=== PATIENT | male | born 1995 | race Two or more races ===

== ENCOUNTER 2023-05-05 20:30 | Emergency (ER) | payer SELFPAY ==
[~2023-05-05] VITALS: Ht 180.3 cm; Wt 83.0 kg
[2023-05-05] MEDS ORDERED: METOCLOPRAMIDE HCL 5MG/ml INJ 2ml VIAL IV ONE (21:00)
[2023-05-05] MEDS ORDERED: SODIUM CHLORIDE 0.9% 1,000 ML IV ONE (21:00)
[2023-05-05 21:54] LABS: Basophils # (auto) 0.1 10 ^3/uL (0-0.2); Basophils % (auto) 0.8 % (0.0-2.0); Eosinophils # (auto) 0.3 10 ^3/uL (0-0.8); Lymphocytes # (auto) 2.4 10 ^3/uL (0.4-5.4); Mean Corpuscular Hemoglobin 30.6 pg (28.0-32.0); Mean Corpuscular Volume 89.8 fL (80.0-100.0); Monocytes # (auto) 0.6 10 ^3/uL (0-1.3); Monocytes % (auto) 6.1 % (0.0-12.0); Neutrophils # (auto) 6.2 10 ^3/uL (1.6-8.6); Neutrophils % (auto) 65.1 % (37.0-80.0); Red Blood Cells 4.57 10^6/uL (4.5-5.90); Red Cell Distribution Width 13.4 % (11.8-14.3); White Blood Cell 9.6 10^3/uL (4.4-10.8)
[2023-05-05 22:13] LABS: Albumin 3.7 g/dL (3.4-5.0); BUN/Creatinine Ratio 11.5 (10.0-20.0); Calcium 9.4 mg/dL (8.5-10.1); Potassium 4.6 mmol/L (3.5-5.1)
[2023-05-05 22:22] LABS: Bilirubin, Total 0.3 mg/dL (0.2-1.0); Total Protein 7.5 g/dL (6.4-8.2)
[2023-05-05 23:48] LABS: Alcohol, Urine < 3.0 mg/dL (0-10); Amphetamine Screen, Urine POSITIVE (NEGATIVE); Barbiturate Scree,Urine NEGATIVE (NEGATIVE); Benzodiazephine Screen, Urine NEGATIVE (NEGATIVE); Cannabinoid Screen, Urine POSITIVE (NEGATIVE); Cocaine Screen, Urine NEGATIVE (NEGATIVE); Urine Amorphous Crystal MOD /hpf (None Seen); Urine Bacteria MANY /hpf (None Seen); Urine Blood Negative /uL (Negative); Urine Mucus FEW (None Seen); Urine Specific Gravity 1.018 (1.001-1.035); Urine WBC <1 /hpf (0 - 3)
[2023-05-05 23:57] LABS: Opiate Scree,Urine NEGATIVE (NEGATIVE); Phencyclidine Screen, Urine NEGATIVE (NEGATIVE)
[2023-05-06] MEDS ORDERED: PANTOPRAZOLE 80 MG in SODIUM CHL 0.9% 100 ML IV ONE ×2
[2023-05-06] MEDS ORDERED: PANTOPRAZOLE 40mg/50ML NS AE 50 ML IV ONE
[2023-05-06] MEDS ORDERED: LORazepam 2MG/ML-1ML VIAL IV ONE (00:15)
[2023-05-06] MEDS ORDERED: PANT40TA2 PO (01:33)
[2023-05-06] MEDS ORDERED: METO-281 PO (01:34)
[2023-05-06 02:06] VITALS: BP 115/69
== END 2023-05-06 02:07 | disposition home or self-care (01) ==
LOC: ER 20:30
DX: K29.70 Gastritis, unspecified, without bleeding (principal)
CPT/HCPCS: 36415; 74176; 80053; 80307; 81001; 83690; 85025; 96361; 96365; 96375; 99285; C9113; J2060; J2765; J7030

== ENCOUNTER 2024-07-19 18:55 | Emergency (ER) | payer MEDICAID, OTHER ==
[~2024-07-19] VITALS: Ht 180.3 cm; Wt 83.0 kg
[~2024-07-19 18:55] MED LIST: METO-281 PO; PANT40TA2 PO
[2024-07-19 19:38] VITALS: BP 135/61; PULSE 76; RESP 16; TEMP 98.1; O2SAT 98
[2024-07-19] MEDS ORDERED: cefTRIAXone W LIDOCAINE 1 GM IM IM ONE (21:00)
[2024-07-19] MEDS ORDERED: DOXY100C4 PO (21:11)
[2024-07-19] MEDS: cefTRIAXone SOD 1,000 MG VL IM ONE (21:39)
== END 2024-07-19 21:43 | disposition home or self-care (01) ==
LOC: ER 18:55
DX: L03.031 Cellulitis of right toe (principal); S91.111D Laceration without foreign body of right great toe without damage to nail, subsequent encounter; X58.XXXD Exposure to other specified factors, subsequent encounter
CPT/HCPCS: 73660; 96372; 99283; J0696

== ENCOUNTER 2025-01-27 22:41 | Emergency (ER) | payer OTHER ==
[~2025-01-27] VITALS: Ht 180.3 cm; Wt 83.4 kg
[2025-01-27 22:41] VITALS: BP 146/80; PULSE 112; RESP 18; O2SAT 98
[~2025-01-27 22:41] MED LIST changes: +DOXY100C4 PO
[2025-01-27] MEDS ORDERED: KETOROLAC TROMETH 30 MG/ML 1ML VIAL IM ONE (23:15)
[2025-01-27] MEDS ORDERED: cefTRIAXone SOD 1,000 MG VL IM ONE (23:15)
[2025-01-27] MEDS ORDERED: CLIN1CAP70 PO (23:16)
[2025-01-27] MEDS ORDERED: IBUP-1455 PO (23:16)
--- NOTE | 2025-01-27 23:16 | ED.PDOC ---
History of Present Illness(SKN HPI Comments 29-YEAR-OLD MALE COMPLAINING OF LEFT LOWER EXTREMITY SWELLING AND PAIN. PATIENT STATES THREE DAYS AGO HE TRIED TO REMOVE A INGROWN TOENAIL OF THE LEFT GREAT TOE. SAYS HIS FOOT BECAME MORE SWOLLEN AND HAVING DISCHARGED IN STARTED TO EXTEND UP INTO HIS LOWER LEG. PATIENT STATES INTERMITTENT CHILLS. NOTHING MAKES IT BETTER, TOUCHING THE AREA MAKES IT WORSE. Chief Complaint: Lower Extremity Time Seen by MD: 23:03 History of Present Illness: Nurses Notes Allergies: Coded Allergies: NO KNOWN ALLERGIES (Unverified , 05/05/23) Home Meds Active Scripts Doxycycline Hyclate (Doxycycline Hyclate) 100 Mg Cap, 100 MG PO BID for 7 Days, #14 CAP Prov:NARA CROSS 07/19/24 Metoclopramide Hcl (Reglan) 10 Mg Tab, 10 MG PO TIDP PRN for 30 Days, #90 TAB Prov:SAMI GORDILLO DO 05/06/23 Pantoprazole Sodium Sesquihydr (Protonix) 40 Mg Tab, 40 MG PO DAILY for 30 Days, #30 TAB Prov:SAMI GORDILLO DO 05/06/23 Information Source: Patient Severity: Mild Past Medical History PAST MEDICAL HISTORY: Denies Surgical History: Denies all surgeries Family History Family History: Reviewed,noncontributory to illness, Unknown Social History Smoker: Non-Smoker Alcohol: Denies ETOH Use Drugs: Denies Drug Use Constitutional: denies: chills, diaphoresis, fatigue, fever, malaise, sweats, weakness, others EENTM: denies: blurred vision, double vision, ear bleeding, ear discharge, ear drainage, ear pain, ear ringing, eye pain, eye redness, hearing loss, mouth pain, mouth swelling, nasal discharge, nose bleeding, nose congestion, nose pain, photophobia, tearing, throat pain, throat swelling, voice changes, others Respiratory: denies: cough, hemoptysis, orthopnea, SOB at rest, shortness of breath, SOB with excertion, stridor, wheezing, others Cardiovascular: denies: chest pain, dizzy spells, diaphoresis, Dyspnea on exertion, edema, irregular heart beat, left arm pain, lightheadedness, palpitati ons, PND, syncope, others Gastrointestinal: denies: abdomen distended, abdominal pain, blood streaked bowels, constipated, diarrhea, dysphagia, difficulty swallowing, hematemesis, melena, nausea, poor appetite, poor fluid intake, rectal bleeding, rectal pain, vomiting, others Genitourinary: denies: burning, dysuria, flank pain, frequency, hematuria, incontinence, penile discharge, penile sore, pain, testicle pain, testicle swelling, urgency, others Neurological: denies: dizziness, fainting, headache, left sided numbness, left sided weakness, numbness, paresthesia, pre-existing deficit, right sided numbness, right sided weakness, seizure, speech problems, tingling, tremors, weakness, others Musculoskeletal: denies: back pain, gout, joint pain, joint swelling, muscle pain, muscle stiffness, neck pain, others Integumetry: denies: bruises, change in color, change in hair/nails, dryness, laceration, lesions, lumps, rash, wounds, others Allergic/Immunocompromised: denies: Difficulty Healing, Frequent Infections, Hives, Itching, others Hematologic/Lymphatic: denies: anemia, blood clots, easy bleeding, easy bruising, swollen glands, others Psychiatric: denies: anxiety, bipolar disorder, depression, hopeless, panic disorder, schizophrenia, sleepless, suicidal, others Physical Exam General Appearance: No Apparent Distress, Normal HEENT: Normal ENT Inspection, Pharynx Normal, TMs Normal Neck: Full Range of Motion, Non-Tender, Normal, Normal Inspection Respiratory: Chest Non-Tender, Lungs Clear, No Accessory Muscle Use, No Respiratory Distress, Normal Breath Sounds Cardiovascular: No Edema, No JVD, No Murmur, No Gallop, Normal Peripheral Pulses, Regular Rate/Rhythm Breast Exam: Deferred Gastrointestinal: No Organomegaly, Non Tender, No Pulsatile Mass, Normal Bowel Sounds, Soft Genitalia: Deferred Pelvic: Deferred Rectal: Deferred Extremities: No calf tenderness, Normal capillary refill, Normal inspection, Normal range of motion, Non-tender, No pedal edema Musculoskeletal : Extremity Location: Leg (ERYTHEMATOUS SWELLING NOTED IN THE LEFT LOWER EXTREMITY, PITTING EDEMA, LEFT GREAT TOE POSITIVE ERYTHEMIC POSITIVE DISCHARGE.) Apperance: Normal Neurologic: Alert, quill machine operator II-XII nml as Tested, No Motor Deficits, Normal Affect, Normal Mood, No Sensory Deficits Cerebellar Function: Normal Reflexes: Normal Skin: Dry, Normal Color, Warm Lymphatic: No Adenopathy Was a procedure done? Was a procedure done?: No Differential Diagnosis (INTG) Differential Diagnosis: Cellulitis, Hematoma X-Ray, Labs, Meds, VS Comment IMAGING: X-RAYS AND CT SCANS WERE REVIEWED AND INTERPRETED BY THIS PROVIDER, IMAGING SHOWS NO FRACTURES AND NO PATHOLOGICAL DISEASE. PENDING RADIOLOGY REVIEW. LABORATORY: LABS REVIEWED AND INTERPRETED BY THIS PROVIDER. NO SIGNIFICANT ABNORMALITIES NOTED. PATIENT HAS PRIOR MEDICAL VISITS REVIEWED. MED RECONCILIATION PERFORMED VITAL SIGNS REVIEWED Time of 1ST Reevaluation: 23:16 Reevaluation 1ST: Improved Patient Education/Counseling: Diagnosis, Treatment, Need For Follow Up (PATIENT ADVISED TO FOLLOW-UP IN THE EMERGENCY ROOM IN THE NEXT 24 TO 48 HOURS IF SYMPTOMS DO NOT IMPROVE. ADVISED FOLLOW-UP WITH PCP IN THE NEXT 3 TO 5 DAYS. PATIENT VERBALIZED UNDERSTANDING. ) Family Education/Counseling: Diagnosis Departure 1 Departure Time of Disposition: 23:14 Impression: Primary Impression: Left leg cellulitis Disposition: HOME / SELF CARE / HOMELESS Condition: Fair e-Prescriptions Ibuprofen Micronized (Ibuprofen) 800 Mg Tab 800 MG PO TID PRN, #30 TAB Prov: SY KOENIG 01/27/25 Clindamycin Hcl (Clindamycin Hcl) 300 Mg Cap 300 MG PO QID for 7 Days, #28 CAP Prov: SY KOENIG 01/27/25 Discharged With: Self Critical Care Note Critical Care Time?: No Stability Stability form required: No Heart Score Heart Score: Heart Score Response (Comments) Value History N/A 0 EKG N/A 0 Age N/A 0 Risk Factors N/A 0 Troponin N/A 0 Total 0 SY KOENIG Jan 27, 2025 23:16
== END 2025-01-28 02:50 | disposition home or self-care (01) ==
LOC: ER 22:41
DX: L03.116 Cellulitis of left lower limb (principal)
CPT/HCPCS: 99283; J0696; J1885